=== PATIENT | female | born 1990 | race Caucasian/White ===

== ENCOUNTER 2017-08-05 22:09 | Emergency (ER) | payer MEDICAID ==
[~2017-08-05] VITALS: Ht 162.6 cm; Wt 49.0 kg
[~2017-08-05 22:09] MED LIST: ACYC-114 PO; ALPR-475 PO; CEFI400C PO; DIAZ5TAB4 PO; IBUP-1223 PO; MEDR10TA PO; METR500T PO; ONDA4TAB7 PO; OXYC-302 PO; OXYC-307 PO; OXYC1TAB7 PO; OXYC5TAB3 PO; PARO20TA98 PO; PHEN-418 PO; POLY17PO5 PO; [UNRECOGNIZED DRUG - REMARK]
[2017-08-05] MEDS ORDERED: SODIUM CHLORIDE 0.9% 1,000ML IVBOLUS ONE (22:30)
[2017-08-05] MEDS ORDERED: ONDANSETRON 2MG/ML, 2ML IVPush ONE (22:30)
[2017-08-05] MEDS ORDERED: SODIUM CHLORIDE FLUSH 10ML SYR IVF ONE (22:30)
[2017-08-05] MEDS ORDERED: KETOROLAC 30 MG/1 ML IVPush ONE (22:30)
[2017-08-05] MEDS ORDERED: KETOROLAC 30 MG/1 ML ONE (22:36)
[2017-08-05] MEDS ORDERED: ONDANSETRON 2MG/ML, 2ML ONE (22:36)
[2017-08-05 22:44] LABS: HEMATOCRIT 41.4 % (34.6-47.8); HEMOGLOBIN 14.1 g/dL (11.7-16.4); WHITE BLOOD COUNT 8.1 x10^3/uL (3.4-10)
[2017-08-05 22:50] LABS: BLOOD UREA NITROGEN 14 mg/dL (7-18)
[2017-08-05 22:53] LABS: ASPARTATE AMINO TRANSFERASE 16 U/L (15-37)
[2017-08-05 23:54] VITALS: BP 110/69
== END 2017-08-05 23:56 | disposition home or self-care (01) ==
LOC: ED 22:38
DX: R56.9 Unspecified convulsions (principal); Z90.710 Acquired absence of both cervix and uterus
CPT/HCPCS: 36415; 80053; 85025; 93005; 96361; 96374; 96375; 99285; J1885; J2405; J7030

== ENCOUNTER 2017-08-21 11:51 | Inpatient (IN) | payer MEDICAID ==
[~2017-08-21] VITALS: Ht 162.6 cm; Wt 52.2 kg
[2017-08-21] MEDS ORDERED: ONDANSETRON 2MG/ML, 2ML IVPush ONE (12:30)
[2017-08-21] MEDS ORDERED: SODIUM CHLORIDE 0.9% 1,000ML IVBOLUS ONE (12:30)
[2017-08-21] MEDS ORDERED: KETAMINE 100 MG/ML, 5ML IV ONE (12:30)
[2017-08-21] MEDS ORDERED: SODIUM CHLORIDE FLUSH 10ML SYR IVF ONE (12:30)
[2017-08-21 12:52] LABS: HEMATOCRIT 37.9 % (34.6-47.8); HEMOGLOBIN 12.8 g/dL (11.7-16.4); WHITE BLOOD COUNT 6.1 x10^3/uL (3.4-10)
[2017-08-21] MEDS ORDERED: LORazepam 2 MG/ML, 1ML ONE (13:01)
[2017-08-21 13:02] LABS: ASPARTATE AMINO TRANSFERASE 16 U/L (15-37); BLOOD UREA NITROGEN 9 mg/dL (7-18)
[2017-08-21] MEDS ORDERED: LORazepam 2 MG/ML, 1ML IVPush ONE (14:00)
[2017-08-21 14:17] LABS: DAU SCREEN DISCLAIMER
[2017-08-21 14:36] LABS: PATH.CAST-FLAG NOT PRESENT; SPERM-FLAG NOT PRESENT; SRC-FLAG NOT PRESENT; XTAL-FLAG NOT PRESENT; YLC-FLAG NOT PRESENT
[2017-08-21] MEDS ORDERED: KETAMINE 10 MG/ML, 20ML ONE (14:40)
[2017-08-21] MEDS ORDERED: ONDANSETRON 2MG/ML, 2ML ONE (14:40)
[2017-08-21] MEDS ORDERED: LIDOCAINE 1%, 20ML ONE (14:46)
[2017-08-21] MEDS ORDERED: ALPR1TAB2 PO (15:14)
[2017-08-21] MEDS ORDERED: ESTR0.9T PO (15:14)
[2017-08-21 15:18] LABS: GLUCOSE, CSF 49 mg/dL (40-80)
[2017-08-21] MEDS ORDERED: MORPHINE SULFATE 4 MG/ML, 1ML ONE ×2 (15:26→17:05)
[2017-08-21] MEDS ORDERED: MORPHINE SULFATE 4 MG/ML, 1ML IVPush ONE ×2 (16:00→18:00)
[2017-08-21] MEDS ORDERED: GADOBUTROL 7.5 MMOL/7.5 ML PFS ONE (16:23)
[2017-08-21] MEDS ORDERED: ACETAMINOPHEN 325 MG TABLET PO PRN (19:00)
[2017-08-21] MEDS ORDERED: DIAZEPAM 5 MG TABLET PO ONE (19:00)
[2017-08-21] MEDS ORDERED: ONDANSETRON 2MG/ML, 2ML IVPush PRN (19:00)
[2017-08-21] MEDS ORDERED: BUTALB/APAP/CAFFEINE 50MG/325MG/40MG PO PRN (19:00)
[2017-08-21] MEDS: SODIUM CHLORIDE FLUSH 10ML SYR IVF SCH (20:43)
[2017-08-21] MEDS: ALPRazolam 1MG TABLET PO SCH (20:43)
[2017-08-21] MEDS: OXYcodone IR 5MG TABLET PO PRN (21:22)
[2017-08-22 04:46] VITALS: BP 96/57
[2017-08-22] MEDS: OXYcodone IR 5MG TABLET PO PRN ×3 (04:57→22:21)
[2017-08-22 08:00] VITALS: BP 94/56
[2017-08-22] MEDS: SODIUM CHLORIDE FLUSH 10ML SYR IVF SCH ×2 (08:32→20:54)
[2017-08-22] MEDS: ALPRazolam 1MG TABLET PO SCH ×3 (09:00→20:54)
[2017-08-22] MEDS: ESTROGEN CONJUGATED 0.9 MG PO SCH (09:00)
[2017-08-22] MEDS ORDERED: MIDAZOLAM 1 MG/ML, 5ML ONE (13:51)
[2017-08-22] MEDS ORDERED: FENTANYL PF 100 MCG/2ML ONE (13:51)
[2017-08-22] MEDS ORDERED: GADOBUTROL 10 MMOL/10 ML VIAL ONE (14:25)
[2017-08-22 15:20] VITALS: BP 102/57
[2017-08-22] MEDS ORDERED: MORPHINE SULFATE 4 MG/ML, 1ML IVPush ONE (17:30)
[2017-08-22 17:50] LABS: HIV 1&2 ANTIBODY SCREEN Nonreactive (Nonreactive); HIV-1 p24 ANTIGEN Nonreactive (Nonreactive)
[2017-08-22 20:17] VITALS: BP 94/58
[2017-08-22] MEDS: OFLOXACIN OPHTH 0.3%, 5ML EACHEYE SCH (20:54)
[2017-08-23 02:57] VITALS: BP 92/50
[2017-08-23] MEDS: OXYcodone IR 5MG TABLET PO PRN ×2 (04:16→13:32)
[2017-08-23] MEDS: OFLOXACIN OPHTH 0.3%, 5ML EACHEYE SCH ×3 (06:03→18:03)
[2017-08-23 08:36] VITALS: BP 96/59
[2017-08-23] MEDS: ALPRazolam 1MG TABLET PO SCH ×2 (09:14→18:02)
[2017-08-23] MEDS: ESTROGEN CONJUGATED 0.9 MG PO SCH (09:14)
[2017-08-23] MEDS: SODIUM CHLORIDE FLUSH 10ML SYR IVF SCH (09:14)
[2017-08-23 10:07] LABS: WEST NILE VIRUS IGG CSF Negative (Negative); WEST NILE VIRUS IGM CSF Negative (Negative)
[2017-08-23 13:54] LABS: ANA SCREEN NEGATIVE (Negative)
[2017-08-23 15:02] VITALS: BP 106/56
[2017-08-23] MEDS ORDERED: SERTRALINE 50MG TABLET PO SCH (16:00)
[2017-08-23] MEDS ORDERED: SERT50TA5 PO (16:55)
[2017-08-23] MEDS ORDERED: CEFD300C37 PO (16:55)
== END 2017-08-23 18:30 | disposition home or self-care (01) | DRG 101 ==
LOC: ED 16:06 → EDIP 17:58 → SUATTDRO 18:09 → 3NE 20:00
PROVIDERS: ADMIT Hospitalist; ATTEND Hospitalist
PROC: 009U3ZX Drainage of Spinal Canal, Percutaneous Approach, Diagnostic (ICD-10-PCS; principal; 2017-08-21)
DX: G40.909 Epilepsy, unspecified, not intractable, without status epilepticus (principal); G62.9 Polyneuropathy, unspecified; N39.0 Urinary tract infection, site not specified; F13.239 Sedative, hypnotic or anxiolytic dependence with withdrawal, unspecified; E10.9 Type 1 diabetes mellitus without complications; F17.210 Nicotine dependence, cigarettes, uncomplicated; F41.0 Panic disorder [episodic paroxysmal anxiety]; F41.1 Generalized anxiety disorder; F44.9 Dissociative and conversion disorder, unspecified; H02.401 Unspecified ptosis of right eyelid; J44.9 Chronic obstructive pulmonary disease, unspecified; N80.9 Endometriosis, unspecified; Z79.4 Long term (current) use of insulin; Z79.899 Other long term (current) drug therapy; Z81.1 Family history of alcohol abuse and dependence; Z90.710 Acquired absence of both cervix and uterus; M54.5 Low back pain
CPT/HCPCS: 36415; 62270; 70546; 70553; 71010; 80053; 80307; 81001; 82945; 84157; 84443; 85025; 85610; 85651; 85730; 86038; 86592; 86703; 86788; 86789; 87070; 87086; 87205; 87252; 87491; 87591; 87899; 89051; 93005; 95819; 96361; 96374; 96375; 96376; 99152; 99153; 99156; 99157; A9585; J2250; J2405; J3010; G0435; G0479; J2060; J7030

== ENCOUNTER 2018-02-21 11:59 | Emergency (ER) | payer MEDICAID ==
[~2018-02-21] VITALS: Ht 162.6 cm; Wt 50.6 kg
[~2018-02-21 11:59] MED LIST changes: +ALPR1TAB2 PO; +CEFD300C37 PO; +ESTR0.9T PO; +SERT50TA5 PO
[2018-02-21 12:00] VITALS: BP 108/74
== END 2018-02-21 14:39 | disposition left against medical advice (07) ==
LOC: ED 14:33
DX: R56.9 Unspecified convulsions (principal); Z53.21 Procedure and treatment not carried out due to patient leaving prior to being seen by health care provider

== ENCOUNTER 2018-02-24 21:05 | Emergency (ER) | payer MEDICAID ==
[~2018-02-24] VITALS: Ht 162.6 cm; Wt 51.7 kg
[2018-02-24] MEDS ORDERED: LIDOCAINE-MPF 1%, 5ML ONE (21:37)
[2018-02-24] MEDS ORDERED: IBUPROFEN 200 MG TABLET ONE (21:41)
[2018-02-24] MEDS ORDERED: ONDANSETRON ODT 4 MG ONE (21:41)
[2018-02-24] MEDS ORDERED: OXYcodone/APAP 5/325MG TABLET ONE (21:42)
[2018-02-24] MEDS ORDERED: IBUPROFEN 200 MG TABLET PO ONE (22:00)
[2018-02-24] MEDS ORDERED: OXYcodone/APAP 5/325MG TABLET PO ONE (22:00)
[2018-02-24] MEDS ORDERED: LIDOCAINE-MPF 1%, 5ML INFIL ONE (22:00)
[2018-02-24] MEDS ORDERED: ONDANSETRON ODT 4 MG PO ONE (22:00)
[2018-02-24 22:37] VITALS: BP 95/68
== END 2018-02-24 22:51 | disposition home or self-care (01) ==
LOC: ED 22:18
DX: K04.6 Periapical abscess with sinus (principal); F17.200 Nicotine dependence, unspecified, uncomplicated; F41.9 Anxiety disorder, unspecified; Z88.0 Allergy status to penicillin
CPT/HCPCS: 41800; 99284; Q0162

== ENCOUNTER 2018-02-28 20:20 | Emergency (ER) | payer MEDICAID ==
[~2018-02-28] VITALS: Ht 162.6 cm; Wt 51.0 kg
[2018-02-28 20:50] LABS: BASOPHILS # (AUTO) 0.03 x10^3/uL (0-0.1); BASOPHILS % (AUTO) 1 % (0-1); EOSINOPHILS # (AUTO) 0.18 x10^3/uL (0-0.4); EOSINOPHILS % (AUTO) 3 % (1-7); LYMPHOCYTES # (AUTO) 2.23 x10^3/uL (1-3.4); LYMPHOCYTES % (AUTO) 34 % (22-44); MD NO; MEAN CORPUSCULAR HEMOGLOBIN 30.1 pg (27.0-34.8); MEAN CORPUSCULAR HGB CONC 33.7 g/dL (32.4-35.8); MEAN CORPUSCULAR VOLUME 89.5 fL (80-100); MEAN PLATELET VOLUME 9.5 fL (7.4-10.4); MONOCYTES % (AUTO) 6 % (2-9); NEUTROPHILS # (AUTO) 3.72 x10^3/uL (1.8-6.8); NEUTROPHILS % (AUTO) 57 % (42-75); PLATELET COUNT 278 x10^3/uL (130-400); RED BLOOD COUNT 4.54 x10^6/uL (3.82-5.3); RED CELL DISTRIBUTION WIDTH 12.5 % (9.6-15.2)
[2018-02-28] MEDS ORDERED: SODIUM CHLORIDE FLUSH 10ML SYR IVF ONE (21:00)
[2018-02-28 21:30] LABS: ALBUMIN 4.1 g/dL (3.4-5.0); ANION GAP 8 mmol/L (5-15); CHLORIDE 106 mmol/L (98-107); CREATININE 0.88 mg/dL (0.55-1.02)
[2018-02-28 21:40] VITALS: BP 90/52
== END 2018-02-28 21:50 | disposition home or self-care (01) ==
LOC: ED 21:40
DX: K08.89 Other specified disorders of teeth and supporting structures (principal); K04.7 Periapical abscess without sinus; Z72.89 Other problems related to lifestyle; Z60.9 Problem related to social environment, unspecified
CPT/HCPCS: 36415; 80048; 82040; 83880; 85025; 99284

== ENCOUNTER 2019-04-20 19:41 | Emergency (ER) | payer MEDICAID ==
[~2019-04-20] VITALS: Ht 162.6 cm; Wt 53.0 kg
[~2019-04-20 19:41] MED LIST changes: +SERT50TA28 PO; -SERT50TA5 PO
--- NOTE | 2019-04-20 19:51 | NUR ---
Pt presents to ed c/o od of unknown etiology. States has medication for nelson and narcotic given to her for hand pain. Denies further drug use. Was found apneic and unresponsive by bf. Given 1 round of cpr w/ cp present post even. Given 2 mg of narcan via fire and spontaneous breathing re-established. neuro fully intact in ed. All monitoring applied. Wctm.
[2019-04-20] MEDS ORDERED: ONDANSETRON 2MG/ML, 2ML ONE (19:57)
--- NOTE | 2019-04-20 20:07 | NUR ---
Pt denies any si/sa tonight.
--- NOTE | 2019-04-20 20:08 | NUR ---
Pt given iv zofran per pa verbal order. States nausea s/t narcan admin.
[2019-04-20 20:10] LABS: BASOPHILS # (AUTO) 0.08 x10^3/uL (0-0.1); BASOPHILS % (AUTO) 1 % (0-1); EOSINOPHILS # (AUTO) 0.55 x10^3/uL (0-0.4); EOSINOPHILS % (AUTO) 7 % (1-7); LYMPHOCYTES # (AUTO) 2.15 x10^3/uL (1-3.4); LYMPHOCYTES % (AUTO) 27 % (22-44); MD NO; MEAN CORPUSCULAR HEMOGLOBIN 31.2 pg (27.0-34.8); MEAN CORPUSCULAR HGB CONC 33.2 g/dL (32.4-35.8); MEAN CORPUSCULAR VOLUME 93.9 fL (80-100); MEAN PLATELET VOLUME 9.4 fL (7.4-10.4); MONOCYTES # (AUTO) 0.39 x10^3/uL (0.2-0.8); MONOCYTES % (AUTO) 5 % (2-9); NEUTROPHILS % (AUTO) 60 % (42-75); PLATELET COUNT 273 x10^3/uL (130-400); RED BLOOD COUNT 4.11 x10^6/uL (3.82-5.3); RED CELL DISTRIBUTION WIDTH 13.1 % (9.6-15.2)
[2019-04-20 20:23] LABS: ALANINE AMINOTRANSFERASE 19 U/L (12-78); ALBUMIN 4.3 g/dL (3.4-5.0); ANION GAP 7 mmol/L (5-15); CALCIUM 9.5 mg/dL (8.5-10.1); CHLORIDE 108 mmol/L (98-107); CREATININE 0.95 mg/dL (0.55-1.02)
[2019-04-20 20:27] LABS: ALKALINE PHOSPHATASE 75 U/L (45-117); BILIRUBIN,TOTAL 0.3 mg/dL (0.2-1.0); TOTAL PROTEIN 7.6 g/dL (6.4-8.2)
[2019-04-20] MEDS ORDERED: ONDANSETRON 2MG/ML, 2ML IVPush ONE (20:30)
[2019-04-20] MEDS ORDERED: METOCLOPRAMIDE 5 MG/ML, 2ML ONE (20:40)
--- NOTE | 2019-04-20 20:47 | NUR ---
Pt still a+ox4. Pupils more brisk response and 3 mm. Wctm.
[2019-04-20] MEDS ORDERED: METOCLOPRAMIDE 5 MG/ML, 2ML IVPush ONE (21:00)
[2019-04-20 22:08] VITALS: BP 102/50
[2019-04-20] MEDS ORDERED: ONDANSETRON ODT 4 MG ONE (22:35)
--- NOTE | 2019-04-20 22:36 | NUR ---
Pt states increased nausea. Given odt zofran per pa verbal order.
--- NOTE | 2019-04-20 22:53 | NUR ---
Md at bedside for assessment. States still nauseated. Md verbal order 12.5 mg phenergan im.
[2019-04-20] MEDS ORDERED: PROMETHAZINE 25 MG/ML, 1ML ONE (22:54)
[2019-04-20] MEDS ORDERED: ONDANSETRON ODT 4 MG PO ONE (23:00)
[2019-04-20] MEDS ORDERED: PROMETHAZINE 25 MG/ML, 1ML IM ONE (23:00)
== END 2019-04-20 23:57 | disposition home or self-care (01) ==
LOC: ED 20:28
DX: F15.10 Other stimulant abuse, uncomplicated (principal); R11.2 Nausea with vomiting, unspecified
CPT/HCPCS: 36415; 71045; 80053; 83690; 84703; 85025; 93005; 96372; 96374; 96375; 99284; J2405; J2550; J2765; Q0162

== ENCOUNTER 2019-07-07 21:09 | Emergency (ER) | payer MEDICAID ==
[~2019-07-07] VITALS: Ht 162.6 cm; Wt 48.5 kg
[2019-07-07 21:56] VITALS: BP 122/37
== END 2019-07-07 23:31 | disposition home or self-care (01) ==
LOC: ED 22:59
DX: T40.2X1A Poisoning by other opioids, accidental (unintentional), initial encounter (principal); R40.1 Stupor; J96.01 Acute respiratory failure with hypoxia; Y92.89 Other specified places as the place of occurrence of the external cause; F11.10 Opioid abuse, uncomplicated; F17.200 Nicotine dependence, unspecified, uncomplicated; Z90.710 Acquired absence of both cervix and uterus; F41.1 Generalized anxiety disorder
CPT/HCPCS: 36415; 71045; 80053; 80307; 82962; 84703; 85025; 93005; 99291

== ENCOUNTER 2019-10-03 09:00 | Emergency (ER) | payer MEDICAID ==
[~2019-10-03] VITALS: Ht 162.6 cm; Wt 45.0 kg
[~2019-10-03 09:00] MED LIST changes: -ALPR-475 PO; +ALPR0.5T7 PO
[2019-10-03] MEDS ORDERED: HYDROmorphone 1 MG/ML, 1ML VIAL ONE ×2 (09:37→10:50)
[2019-10-03] MEDS ORDERED: KETOROLAC 30 MG/1 ML ONE (09:37)
[2019-10-03] MEDS ORDERED: ONDANSETRON 2MG/ML, 2ML ONE (09:37)
--- NOTE | 2019-10-03 09:43 | NUR ---
TASK RN: MEDICATED PER EMAR FOR 10 LEFT FLANK PAIN PLACED ON POX/NIBP/2L NC
--- NOTE | 2019-10-03 09:57 | NUR ---
PT HAS CO OF LEFT FLANK PAIN. 09/04, PT STATES SHE THNKS IT IS A KIDNEY STONE. PT HAS HAD ONE BEFORE. CED ESTABLISHED. MEDICATED PER ORDERS. PLACE ON O2. PT NOW IN IMAGING. REMINDED FOR [facility]A.
[2019-10-03] MEDS ORDERED: HYDROmorphone 1 MG/ML, 1ML VIAL IVPush PRN (10:00)
[2019-10-03] MEDS ORDERED: HYDROmorphone 2 MG/ML, 1ML IVPush PRN (10:00)
[2019-10-03] MEDS ORDERED: ONDANSETRON 2MG/ML, 2ML IVPush ONE (10:00)
[2019-10-03] MEDS ORDERED: KETOROLAC 30 MG/1 ML IVPush ONE (10:00)
[2019-10-03 10:23] LABS: BASOPHILS # (AUTO) 0.03 x10^3/uL (0-0.1); BASOPHILS % (AUTO) 0 % (0-1); EOSINOPHILS # (AUTO) 0.14 x10^3/uL (0-0.4); EOSINOPHILS % (AUTO) 1 % (1-7); LYMPHOCYTES # (AUTO) 0.75 x10^3/uL (1-3.4); LYMPHOCYTES % (AUTO) 7 % (22-44); MD NO; MEAN CORPUSCULAR HGB CONC 32.7 g/dL (32.4-35.8); MEAN PLATELET VOLUME 9.7 fL (7.4-10.4); MONOCYTES # (AUTO) 0.48 x10^3/uL (0.2-0.8); MONOCYTES % (AUTO) 5 % (2-9); NEUTROPHILS % (AUTO) 86 % (42-75); PLATELET COUNT 198 x10^3/uL (130-400); RED BLOOD COUNT 3.94 x10^6/uL (3.82-5.3); RED CELL DISTRIBUTION WIDTH 11.7 % (9.6-15.2)
[2019-10-03 10:34] LABS: ALBUMIN 3.8 g/dL (3.4-5.0); ANION GAP 6 mmol/L (5-15); CALCIUM 8.6 mg/dL (8.5-10.1); CHLORIDE 108 mmol/L (98-107); CREATININE 0.87 mg/dL (0.55-1.02)
[2019-10-03] MEDS ORDERED: SODIUM CHLORIDE FLUSH 10ML SYR IVF ONE (11:00)
--- NOTE | 2019-10-03 11:08 | NUR ---
PT AMBULATED TO BATHROOM W STEADY GATE. UA SENT. MEDICATED FOR PAIN
[2019-10-03 11:42] LABS: CULTURE INDICATED? YES; MICROSCOPIC INDICATED
[2019-10-03 12:33] VITALS: BP 86/45
--- NOTE | 2019-10-03 12:33 | NUR ---
Patient/Caregiver given discharge instructions and they have confirmed that they understand the instructions. Patient ambulatory with steady gait.
== END 2019-10-03 12:34 | disposition home or self-care (01) ==
LOC: ED 11:07
DX: N10 Acute pyelonephritis (principal); Z90.710 Acquired absence of both cervix and uterus
CPT/HCPCS: 36415; 74018; 76770; 80048; 81001; 82040; 85025; 87077; 87086; 96374; 96375; 96376; 99284; J1170; J1885; J2405; 87186